=== PATIENT | female | born 1945 | race Caucasian/White ===

== ENCOUNTER → 2016-12-16 | Outpatient (CLI) | payer MEDICARE, OTHER ==
[~2016-12-16] MED LIST: ASPI-558 PO; CALC-446 PO; FISH1CAP47 PO; FLUO40CA PO; IOHEXOL 180 MG/ML 20ml INJECTION ONE; LIDOCAINE 1% (10mg/ml) 5ml VIAL ONE; MULT-338 PO; MethylPREDNISolone ACETATE 40mg/1ml ONE; ROSU10TA13 PO; TRAZ-56 PO; [UNRECOGNIZED DRUG - CODE] PO
--- NOTE | 2016-12-16 14:07 | DI ---
Indication:ITS.REASON: M48.06 SPINAL STENOSIS; M54.16 RADICULOPATHY Procedure:EPIDURAL INJ.SPINE W FLUO CATH LUMBAR EPIDURAL INJECTION: The patient has low back and radicular pain. The patient has had a previous epidural that provided moderate relief. The details of the procedure, including the benefits, risks, and alternatives were explained to the patient. All of their questions were answered. They stated that they understood and wished to proceed. Informed consent was then obtained. A pre-procedural timeout was performed to confirm the correct patient and procedure. Utilizing aseptic technique, local lidocaine anesthetic, and fluoroscopic guidance throughout, a 22-gauge spinal needle was directed into the lumbar epidural space via an interlaminar approach at the L4-5 level. Contrast was injected to assure proper positioning of the needle tip. A fluoroscopic image was then taken and archived. Subsequently, 120 mg Depo-Medrol was injected into the epidural space. The patient tolerated the procedure well. IMPRESSION: Successful lumbar epidural steroid injection. Fluoroscopy dose: 12.65 mGy (Cumulative air kerma) Rhys De La Vega RPA/JOE performed this under my personal supervision. .
== END ==
LOC: IMA 10:58
PROVIDERS: ATTEND Internal Medicine
DX: M48.06 Spinal stenosis, lumbar region (principal); M54.16 Radiculopathy, lumbar region
CPT/HCPCS: 62323; J1030; Q9965

== ENCOUNTER → 2017-01-17 | Outpatient (CLI) | payer MEDICARE, OTHER ==
--- NOTE | 2017-01-17 10:31 | DI ---
Indication:ITS.REASON: M48.06 Spinal stenosis; M54.16 Radiculopathy Procedure:EPIDURAL INJ.SPINE W FLUO CATH LUMBAR EPIDURAL INJECTION: The patient has low back and radicular pain. The patient has had a previous epidural that provided excellent relief. The details of the procedure, including the benefits, risks, and alternatives were explained to the patient. All of their questions were answered. They stated that they understood and wished to proceed. Informed consent was then obtained. A pre-procedural timeout was performed to confirm the correct patient and procedure. Utilizing aseptic technique, local lidocaine anesthetic, and fluoroscopic guidance throughout, a 22-gauge spinal needle was directed into the lumbar epidural space via an interlaminar approach at the L4-5 level. Contrast was injected to assure proper positioning of the needle tip. A fluoroscopic image was then taken and archived. Subsequently, 120 mg Depo-Medrol was injected into the epidural space. The patient tolerated the procedure well. IMPRESSION: Successful lumbar epidural steroid injection. Fluoroscopy dose: 9.87 mGy (Cumulative air kerma) Rhys De La Vega RPA/JOE performed this under my personal supervision. .
== END ==
LOC: IMA 09:22
PROVIDERS: ATTEND Internal Medicine
DX: M48.06 Spinal stenosis, lumbar region (principal); M54.16 Radiculopathy, lumbar region
CPT/HCPCS: 62323; J1030; Q9965

== ENCOUNTER → 2017-01-27 | Outpatient (CLI) | payer MEDICARE, OTHER ==
[~2017-01-27] MED LIST changes: -IOHEXOL 180 MG/ML 20ml INJECTION ONE; -LIDOCAINE 1% (10mg/ml) 5ml VIAL ONE; -MethylPREDNISolone ACETATE 40mg/1ml ONE
== END ==
LOC: WC.BC 14:50
DX: Z12.31 Encounter for screening mammogram for malignant neoplasm of breast (principal); N64.59 Other signs and symptoms in breast; C50.912 Malignant neoplasm of unspecified site of left female breast
CPT/HCPCS: 77063; G0202

== ENCOUNTER 2017-03-03 11:46 | Observation (INO) ==
[2017-03-03 12:33] VITALS: BMI 33.8
[2017-03-03] MEDS ORDERED: NS 1,000 ML IV SCH (13:00)
[2017-03-03] MEDS: NS 1,000 ML IV SCH ×2 (13:23→18:42)
--- NOTE | 2017-03-03 15:12 | Anesthesia Preoperative Report ---
Anesthesia Preoperative Record - Date and Time Date: 03/03/17 Preoperative Diagnosis: acute appendicitis Proposed Procedure: Lap Appy NPO Since Date: 03/02/17 NPO Since Time: 09:00 Allergies/Adverse Reactions: Allergies Allergy/AdvReac Type Severity Reaction Status Date / Time Sulfa (Sulfonamide Allergy Mild Abdominal Verified 03/03/17 12:34 Antibiotics) Discomfort - Vital Signs Vital Signs: Temperature 98.6 F 03/03/17 14:25 Pulse Rate 70 03/03/17 14:25 Respiratory Rate 16 03/03/17 14:25 Blood Pressure 174/81 H 03/03/17 14:25 Pulse Oximetry 95 03/03/17 14:25 Oxygen Delivery Method Room Air Height and Weight: Height 5 ft 6 in Weight 95.1 kg Body Mass Index 33.8 - Medications Inpatient Medications: Current Medications Sodium Chloride (Normal Saline) 1,000 mls @ 100 mls/hr IV .Q10H FANNY Last Admin: 03/03/17 13:23 Dose: 100 mls/hr Home Medications: Home Medications Medication Instructions Recorded Confirmed Type Aspirin [Aspir 81] 81 mg PO DAILY #0 03/05/10 03/03/17 History Fish Oil/[place]-3 Fatty Acids (Fish 2 cap PO DAILY #0 03/05/10 03/03/17 History Oil 1,200 Mg Softgel) Multivitamins (Multi-Day) 1 tab PO DAILY #0 03/05/10 03/03/17 History Rosuvastatin [Crestor] 10 mg PO HS #0 03/05/10 History Trazodone HCl 25 mg PO DAILY #0 03/05/10 History Metformin [Glucophage] 500 mg PO BIDWM 03/03/17 03/03/17 History Venlafaxine [Effexor] 75 mg PO DAILY 03/03/17 03/03/17 History Is Patient on Beta Michelle?: No - Medical History Respiratory: Reports: Sleep Apnea (cpap) Cardiovascular: Reports: Hypertension DENIES: Coronary Artery Disease Gastrointestional: DENIES: Gastroesophageal Reflux Disease Neuro/Musculoskeletal: Denies: Cerebrovascular Accident Renal/Endocrine: Reports: Diabetes Mellitus Type 2 (NIDDM) Other History: DENIES: Anesthesia Reactions - Surgical History HEENT Surgeries: Reports: Eye Surgery (CATARACTS X2) GI Surgery/Treatments: Reports: Colonoscopy Reproductive Surgery/Treatment: Reports: Hysterectomy Anesthesia Reactions: None Hx Family Anesthesia Reaction: No History of Motion Sickness: No - Social History Smoking Status: Never smoker Hx Chewing Tobacco Use: No Second Hand Exposure: No Substance Use Type: does not use Alcohol Intake Frequency: does not drink - Pertinent Findings Laboratory: CBC and BMP 03/03/17 13:43 03/03/17 13:43 BMP 03/03/17 13:43 Sodium 141 Potassium 3.9 Chloride 108 H Carbon Dioxide 25 BUN 10.0 Creatinine 0.7 Glucose 100 Calcium 9.6 Liver Function 03/03/17 Range/Units 13:43 Total Bilirubin 0.90 (0.20-1.30) MG/DL AST 26 (14-36) U/L ALT 29 (9-52) U/L Alkaline Phosphatase 64 (38-126) U/L Albumin 4.3 (3.5-5.0) G/DL EKG Rhythm: Normal Sinus Rhythm - Physical Exam Respiratory Exam: Present: lungs clear Cardiovascular Exam: Present: regular rate and rhythm - Airway Assessment Mallampati Score: II TMD: 3 Fingerbreadths Neck Extension: good Overall Assessment: no airway concerns - ASA ASA Score: 2 - Plan Anesthesia: General Inhalation Gases - Discussion Discussion: Discussed risks/options/alternatives of anesthesia and questions answered. Patient consents. Nursing pain assessment noted. Present for Discussion: friend Attestation Statement: Prior to the delivery of any anesthetic medication, I examined the patient, developed the plan, obtained the patient's consent and discussed the risk and benefits of the procedure with the patient/guardian. - Additional Information Seen by Anesthesia: Yes
[2017-03-03] MEDS ORDERED: LIDOCAINE 2% (100mg/5mL) PF 5ml vl ONE (15:18)
[2017-03-03] MEDS ORDERED: PROPOFOL 20 ML ONE (15:18)
[2017-03-03] MEDS ORDERED: ROCURONIUM 50 MG/5 ML INJECTION IVP ONE (15:18)
[2017-03-03] MEDS ORDERED: FentaNYL 100 MCG/2 ML INJECTION ONE (15:20)
[2017-03-03] MEDS ORDERED: MIDAZOLAM 2mg/2ml INJECTION ONE (15:27)
[2017-03-03] MEDS ORDERED: EPHEDRINE 50mg/ml INJECTION ONE (15:35)
[2017-03-03] MEDS ORDERED: ERTAPENEM 1 G in NS 100 ML IV ONE (15:45)
[2017-03-03] MEDS ORDERED: BUPIVACAINE 0.25% (2.5mg/ml) PF 30ml INJECTION ID ONE (16:05)
[2017-03-03] MEDS ORDERED: ONDANSETRON 4 MG/2 ML INJECTION ONE (16:08)
[2017-03-03] MEDS ORDERED: DEXAMETHASONE 4 MG/ML INJECTION ONE (16:08)
--- NOTE | 2017-03-03 16:08 | Consultation ---
DATE OF CONSULTATION 03/03/2017 HISTORY OF PRESENT ILLNESS This patient is 71 years old. She was seen at the office by YELITZA Donahue, on 03/02/2017. The patient was having right lower quadrant abdominal pain at that time which had started on the previous day. This was a constant aching pain. The patient was worried that this might be her appendix. YELITZA Donahue, did order a CT scan of the abdomen and pelvis for the patient to be performed on the following day. The patient did come in to [facility] and undergo a CT scan of the pelvis on the morning of 03/03/2017. This does show acute appendicitis. The patient has continued to have persistent right lower quadrant abdominal pain which has now been present for two days. She has had no nausea or vomiting associated with this. She has had no diarrhea. PAST MEDICAL HISTORY Previous operations: 1. Left mastectomy in 1989 for treatment of breast cancer. 2. Laparoscopic hysterectomy [place] [address] Vasquez at [facility] at [place], [place]. 3. Colonoscopy in December 2005 with removal of hyperplastic polyp. 4. Colonoscopy in 2009 with normal findings. PHYSICAL EXAMINATION VITAL SIGNS: Temperature is 98.3 degrees oral. Pulse is 72. Respiratory rate is 18. Blood pressure is 152/82. Oxygen saturation is 98% on room air. Height is 1.68 meters. Weight is 95.1 kg. BMI is 33.8 kg/m2. ABDOMEN: The patient has old laparoscopic hysterectomy incision scars. The abdomen is soft. No abdominal masses. The patient does have well-localized right lower quadrant abdominal tenderness. LABORATORY DATA White blood cell count is 7,800 with no bands. Hemoglobin is 13. Hematocrit is 40. INR is 1.14. IMAGING DATA This patient did have a CT scan of the abdomen and pelvis with IV contrast at [facility] on the morning of 03/03/2017. The CT scan shows findings consistent in appearance with acute appendicitis. There is no free air. There is no periappendiceal abscess identified. IMPRESSION 1. Acute appendicitis. PATIENT EDUCATION I did inform the patient of the nature of a laparoscopic appendectomy operation. Expected benefits were reviewed. Alternatives such as antibiotic treatment without operation were reviewed. Potential risks and complications of laparoscopic appendectomy were reviewed including anesthetic risk, bleeding, infection, poor wound healing and injury to intraabdominal and retroperitoneal structures. The patient was informed that there is a chance that any laparoscopic appendectomy might need to be converted over to an open laparotomy with appendectomy operation. Questions were solicited from the patient. All of her questions were answered. She does wish to proceed. RECOMMENDATION Laparoscopic appendectomy. PALLAVI
[2017-03-03] MEDS ORDERED: NEOSTIGMINE 10 MG/10 ML INJECTION ONE (16:39)
[2017-03-03] MEDS ORDERED: GLYCOPYRROLATE 0.4 MG/2 ML INJECTION ONE (16:39)
[2017-03-03] MEDS ORDERED: HYDROMORPHONE 2 MG/ML INJECTION ONE (16:59)
--- NOTE | 2017-03-03 17:01 | General Surgery Procedure Note ---
Date of Procedure: 03/03/17 Surgeon: Keren Postoperative Diagnosis: Acute appendicitis Procedure: Laparoscopic appendectomy Estimated Blood Loss: See Anesthesia Record.
[2017-03-03] MEDS ORDERED: LR 1,000 ML IV SCH (17:22)
--- NOTE | 2017-03-03 18:05 | Internal Med History&Physical ---
Internal Medicine HPI Chief complaint: right lower quadrant abdominal pain History of present illness: Rosa M is a 71-year-old obese white female patient of mine at [facility]. She states that she began to have some lower abdominal pain 2 days ago on Tuesday. This was described as mostly a dull ache with occasional crampiness. She became worse yesterday and she was seen in our office by Kisha TORRE. A CT of the abdomen and pelvis was ordered and this was performed this morning. Radiologist, Dr. Jang, called to let me know that this test revealed acute appendicitis. At that point I made her a direct admission and obtained a surgical consult Dr. eVliz. Review of Systems - Constitutional Constitutional: Present: fatigue, lethargy. Absent: fever(s) - EENMT Eyes: Absent: blurry vision, change in vision, pain, photophobia Ears: Absent: ear discharge, ear pain, tinnitus Balance: Absent: vertigo, falling to one side, ataxia Nose: Absent: change in smell, foreign body, obstruction Mouth/Throat: Absent: sore throat, scratchy throat, changes in swallowing, painful swallowing - Cardiovascular Cardiovascular: Absent: chest pain, palpitations, syncope, dyspnea on exertion Rhythm: Present: regular rhythm Vascular: Absent: Raynaud's, atrophy, intermittent claudication, pallor of an extermity - Respiratory Respiratory: Absent: cough, dyspnea, hemoptysis, dyspnea on exertion, wheezing - Gastrointestinal Gastrointestinal: Present: abdominal pain. Absent: change in stool character, coffee ground emesis, constipation, diarrhea, hematemesis, hematochezia, nausea , vomiting - Musculoskeletal Musculoskeletal: Absent: abnormal gait, arthralgias, joint swelling, limited range of motion, muscle cramps - Integumentary/Breasts Integumentary: Absent: alopecia, change in hair, change in pigmentation, changing lesions, non-healing lesions - Neurological Neurological: Absent: abnormal gait, abnormal movements, focal weakness, lack of coordination, numbness, radicular pain - Psychiatric Psychiatric: Absent: abnormal sleep pattern, anxiety, hallucinations, panic attacks, paranoia - Endocrine Endocrine: Absent: change in libido, heat intolerance, polyphagia - Hematologic/Lymphatic Hematologic/Lymphatic: Absent: easy bleeding, easy bruising, lymphadenopathy - Allergic/Immunologic Allergic/Immunologic: Absent: tongue swelling, throat swelling, seasonal rhinorrhea, urticaria PFSH Patient Stated Medical History Cerebrovascular Accident No Cataracts Yes Macular Degeneration Yes Coronary Artery Disease No Hypertension Yes Sleep Apnea Yes: cpap Diabetes Mellitus Type 2 Yes: NIDDM Gastroesophageal Reflux No Disease Hx Urinary Tract Infection Yes Other Musculoskeletal Yes: SPINAL STENOSIS Anesthesia Reactions No Depression Yes Post Menopausal Yes - Social History Smoking status: Never smoker second hand exposure: No Substance use type: does not use Alcohol intake frequency: does not drink Last drink: unknown Housing: house Household members: none Current occupational status: retired Current occupational exposures/hazards: No Does patient use chewing tobacco?: No Current residence: Apartment/Private Home Medications Home Medications Medication Instructions Recorded Confirmed Type Aspirin [Aspir 81] 81 mg PO DAILY #0 03/05/10 03/03/17 History Fish Oil/[place]-3 Fatty Acids (Fish 2 cap PO DAILY #0 03/05/10 03/03/17 History Oil 1,200 Mg Softgel) Multivitamins (Multi-Day) 1 tab PO DAILY #0 03/05/10 03/03/17 History Rosuvastatin [Crestor] 10 mg PO HS #0 03/05/10 History Trazodone HCl 25 mg PO DAILY #0 03/05/10 History Metformin [Glucophage] 500 mg PO BIDWM 03/03/17 03/03/17 History Venlafaxine [Effexor] 75 mg PO DAILY 03/03/17 03/03/17 History Allergies Allergy/AdvReac Type Severity Reaction Status Date / Time Sulfa (Sulfonamide Allergy Mild Abdominal Verified 03/03/17 12:34 Antibiotics) Discomfort Exam Vital signs: Temperature 96.8 F 03/03/17 17:40 Pulse Rate 96 03/03/17 17:40 Respiratory Rate 14 03/03/17 17:40 Blood Pressure 150/70 H 03/03/17 17:40 Pulse Oximetry 92 03/03/17 17:40 Oxygen Delivery Method Room Air Oxygen Flow Rate 2 - Constitutional mild distress, well developed, obese - Routine HEENT Exam Head: Present: normocephalic, atraumatic Eye: Present: EOMI, PERRL, normal accommodation. Absent: conjunctival icterus, scleral injection, conjunctivae pink, periorbital ecchymosis, periorbital swelling ENT: Present: mucous membranes moist, nares patent - Routine Neck Exam Present: supple, full ROM, JVD, carotid bruit, lymphadenopathy. Absent: thyromegaly, tenderness - Routine Chest/Breast/Axilla Exam Chest wall: Absent: tenderness Breast: Absent: tenderness Axillae: Absent: lymphadenopathy - Routine Respiratory Exam Present: accessory muscle use, decreased breath sounds, rales Internal Medicine Results - Labs CBC & Chem 7: 03/03/17 13:43 03/03/17 13:43 Labs: Short CBC 03/03/17 Range/Units 13:43 WBC 7.8 (4.5-11.0) T/MM3 Hgb 13.0 (12-16) GM/DL Hct 40.0 (36-46) % Plt Count 188 (130-400) T/MM3 BMP 03/03/17 13:43 Sodium 141 Potassium 3.9 Chloride 108 H Carbon Dioxide 25 BUN 10.0 Creatinine 0.7 Glucose 100 Calcium 9.6 Liver Function 03/03/17 Range/Units 13:43 Total Bilirubin 0.90 (0.20-1.30) MG/DL AST 26 (14-36) U/L ALT 29 (9-52) U/L Alkaline Phosphatase 64 (38-126) U/L Albumin 4.3 (3.5-5.0) G/DL - Imaging and Cardiology CT scan - abdomen Status: image reviewed by me Assessment and Plan (1) Acute appendicitis Current visit: Yes Status: Acute (2) Obesity Current visit: Yes Status: Acute (3) Diabetes mellitus type 2 in obese Current visit: Yes Status: Acute (4) Hypertension Current visit: Yes Status: Acute Sepsis Assessment - Evaluation Sepsis screening result: No Definite Risk
[2017-03-03] MEDS ORDERED: ONDANSETRON 4 MG/2 ML INJECTION IVP PRN (18:32)
[2017-03-03] MEDS ORDERED: ACETAMINOPHEN 500 MG TABLET PO PRN (18:32)
[2017-03-03] MEDS ORDERED: IBUPROFEN 200 MG TABLET PO PRN (18:32)
[2017-03-03] MEDS ORDERED: MORPHINE SULFATE 10 MG SYRINGE IV PRN (18:32)
[2017-03-03] MEDS ORDERED: PROMETHAZINE 25 MG INJECTION IVP PRN (18:32)
[2017-03-03] MEDS ORDERED: Oxycodone *IR* 5 MG TABLET PO PRN (18:32)
--- NOTE | 2017-03-03 19:21 | Anesthesia Postoperative Note ---
- Date and Time Date: 03/03/17 Time: 18:05 - Status Patient Participated in Evaluation: Patient Participated in Person Vital Signs: Temperature 97.9 F 03/03/17 18:05 Pulse Rate 87 03/03/17 18:50 Respiratory Rate 18 03/03/17 18:05 Blood Pressure 152/78 H 03/03/17 18:50 Pulse Oximetry 95 03/03/17 18:50 Oxygen Delivery Method Nasal Cannula Oxygen Flow Rate 2.0 Respiratory Function: Airway Patent Cardiovascular Function: Regular Pulse EKG Rhythm: Normal Sinus Rhythm Mental Status: Alert and Oriented (slightly drowsy) Pain Intensity: 0 Hydration: IV Infusing Complications During Recover: None Apparent - Follow-Up Instructions Instructions: Per Surgeon
[2017-03-04] MEDS: NS 1,000 ML IV SCH ×2 (04:51→11:06)
[2017-03-04 08:09] VITALS: TEMP 98.3; O2SAT 95
[2017-03-04] MEDS ORDERED: ERTAPENEM 1 G in NS 100 ML IV SCH (09:00)
[2017-03-04] MEDS ORDERED: ASPIRIN *EC* 81 MG TABLET PO SCH (09:00)
[2017-03-04] MEDS ORDERED: VENLAFAXINE 75 MG TABLET PO SCH (09:00)
[2017-03-04] MEDS ORDERED: MULTI-VITAMIN + MINERAL TABLET PO SCH (09:00)
[2017-03-04] MEDS ORDERED: OMEGA-3 ACID ESTERS 1 GM CAPSULE PO SCH (09:00)
--- NOTE | 2017-03-04 10:48 | Operative Note ---
DATE OF OPERATION 03/03/2017 PREOPERATIVE DIAGNOSIS Acute appendicitis. POSTOPERATIVE DIAGNOSIS Acute appendicitis. OPERATION Laparoscopic appendectomy. SURGEON Dr. Veliz ANESTHESIA General. ASA CLASS 3 FINDINGS The patient did appear to have acute appendicitis. The appendix appeared to be distended and inflamed. There was some inflammatory exudate on the appendix. There did not appear to be any perforation of the appendix. There was no periappendiceal abscess. Loops of small intestine appeared normal. The terminal ileum and ascending colon appeared normal. Liver appeared normal.. DESCRIPTION OF OPERATION The patient was placed in supine position on the operating table. General anesthesia was satisfactorily induced. A Hobson catheter was inserted into the urinary bladder. The abdomen was prepped and draped in routine sterile fashion. The skin and underlying structures at the abdominal wall at an infraumbilical incision site were infiltrated with bupivacaine 0.25% without epinephrine. An infraumbilical incision was made. A Veress needle was inserted into the peritoneal cavity through the incision. Pneumoperitoneum was established with carbon dioxide. The Veress needle was removed. A 5-mm port was placed at the infraumbilical incision. The 5 mm laparoscope was inserted through the 5 mm infraumbilical port. The skin and underlying abdominal wall structures were infiltrated with bupivacaine at the lateral margin of the right rectus abdominis muscle at the right upper quadrant of the abdomen at another incision site. An incision was made at this location and a 5-mm port was placed at the right upper quadrant abdominal incision. The skin and underlying abdominal wall structures were infiltrated with bupivacaine at a suprapubic incision site. A suprapubic incision was made at the midline. A 12-mm port was placed at the suprapubic incision. The peritoneal cavity was examined with the laparoscope with findings as described above. The appendix was grasped and elevated with the endoscopic Autumn forceps inserted at the suprapubic port. The mesoappendix was divided with the Ethicon brand 5 mm laparoscopic ultrasonically activated coagulating ana. This was the Harmonic Vito ultrasonic ana. This was introduced at the right upper quadrant port. The mesoappendix was coagulated and divided with the Ethicon brand 5 mm laparoscopic ultrasonically activated coagulating ana. The appendix was completely freed up in this manner. Three separate 0 PDS Endoloop ligatures were applied to the base the appendix adjacent to the cecum. The appendix was then divided just beyond these ligatures with a curved dissecting scissors. The appendix was placed in a specimen retrieval pouch. The specimen retrieval pouch containing the appendix was brought out through the suprapubic incision. The appendix was submitted as a specimen for study by the pathologist. The 12 mm port was reinserted at the suprapubic incision. The appendectomy site looked good. The appendiceal stump looked good. Irrigation was performed at the right lateral gutter. Irrigation was performed at the appendectomy site. Irrigation was performed at the pelvis. Irrigation was performed until all the irrigation fluid was clear. Irrigation fluid was removed from the peritoneal cavity. Hemostasis remained satisfactory at the appendectomy site. The appendiceal stump continued to have satisfactory appearance. The suprapubic port was removed. The right upper quadrant port was removed. The laparoscope was removed. The infraumbilical port was removed. Carbon dioxide was removed from the peritoneal cavity by desufflation. The fascial layer of the suprapubic incision was closed with a series of simple interrupted stitches using 0 Vicryl suture. Skin margins were then closed at all the incisions with subcuticular stitches using 4-0 Vicryl suture. Benzoin and 1/4-inch wide Steri- Strips were applied to the incisions. Sterile dressings were applied. The patient tolerated the operation well. The patient was transferred from the operating room to the recovery room in satisfactory condition. PALLAVI
[2017-03-04 12:04] VITALS: BP 141/66; PULSE 71; RESP 16
--- NOTE | 2017-03-04 13:44 | Progress Note ---
DATE 03/04/2017 POSTOP DAY #1 HISTORY The patient is doing well overall. She has the usual postoperative tiredness and fatigue. She is up in a chair at this time. She has been tolerating her diet well. She is having no nausea or vomiting. PHYSICAL EXAMINATION VITAL SIGNS: Temperature is 98.3 degrees oral. Pulse is 71. Respiratory rate is 16. Blood pressure is 141/66. Oxygen saturation is 95% on room air. ABDOMEN: All of the abdominal incisions look good. LABORATORY DATA White blood cell count is 7,600 with 1 band. Hemoglobin is 12.4. Hematocrit is 38.6. IMPRESSION Doing well following laparoscopic appendectomy on 03/03/2017. PLAN Continue to advance diet and activity as tolerated. MTDD
--- NOTE | 2017-03-04 14:59 | Discharge Instructions ---
Discharge Plan - Med Rec/Dispo Referrals/Follow Up: Neo Avina DO [Family Provider] - (Follow up with Dr Avina in 1-2 weeks) Leighton Veliz MD [Physician] - (Please schedule follow up apt for next 03/10/17) Prescriptions: New Acetaminophen [Tylenol] 500 - 1,000 mg PO Q6H PRN tablet PRN Reason: Discomfort Ibuprofen [Motrin] 400 - 800 mg PO Q6H PRN tablet PRN Reason: Pain Senna + Docusate [Senna Plus Tablet] 1 each PO BID #30 tablet PEG 3350 17gm PACKET [Miralax] 17 gm PO DAILY #30 packet Continue Venlafaxine [Effexor] 37.5 mg PO BID Metformin [Glucophage] 500 mg PO BIDWM Trimethoprim 100 tab PO QMWF Rosuvastatin [Crestor] 10 mg PO HS #0 Aspirin [Aspir 81] 81 mg PO DAILY #0 Multivitamins (Multi-Day) 1 tab PO DAILY #0 Fish Oil/[place]-3 Fatty Acids (Fish Oil 1,200 Mg Softgel) 2 cap PO DAILY #0 Trazodone HCl 50 mg PO DAILY #0 Losartan 50 tab PO DAILY Discharge Instructions/Outpatient Orders: Final Provider Discharge Instructions Location: Determined By Patient - Disposition 01 Discharged Home, Self-Care
--- NOTE | 2017-03-04 15:41 | Discharge Summary ---
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 Veliz - Laboratory Labs: 03/04/17 04:09 03/03/17 13:43 - Microbiology None - Radiology Radiology: None - Pathology None History of Present Illness HPI: Rosa M is a 71-year-old obese white female patient of mine at [facility] [employer]. She states that she began to have some lower abdominal pain 2 days ago on Tuesday. This was described as mostly a dull ache with occasional crampiness. She became worse yesterday and she was seen in our office by Kisha TORRE. A CT of the abdomen and pelvis was ordered and this was performed this morning. Radiologist, Dr. Jang, called to let me know that this test revealed acute appendicitis. At that point I made her a direct admission and obtained a surgical consult Dr. Veliz. Objective Vital signs: Temperature 98.3 F 03/04/17 12:00 Pulse Rate 71 03/04/17 12:00 Respiratory Rate 16 03/04/17 12:00 Blood Pressure 141/66 H 03/04/17 12:00 Pulse Oximetry 95 03/04/17 12:00 Oxygen Delivery Method Room Air Oxygen Flow Rate 2 Weight: 98.3 kg - Constitutional Present: no acute distress - Routine HEENT Exam Head: Present: normocephalic, atraumatic Eye: Present: EOMI, PERRL ENT: Present: mucous membranes moist, mucous membranes dry - Routine Respiratory Exam Present: CTA bilaterally - Routine Cardiovascular Exam Present: RRR, S1, S2 - Routine Abdominal Exam Present: soft, normoactive bowel sounds, non distended, non tender - Routine Extremities Exam Present: full ROM - Routine Back/Spine/Pelvis Exam Back/Spine: Present: full ROM - Routine Skin Exam Present: intact, dry, warm - Routine Neurological Exam Present: alert, oriented X3 - Routine Psychiatric Exam Present: normal affect, normal thought process Hospital Course This is a general summary of the patient's hospital course. For more details refer to the complete medical record. Hospital course: Mrs Echeverria was admitted under the care of her primary care provider, Dr. Avina with consultation placed to Dr. Veliz for acute appendicitis. She underwent a laparoscopic appendectomy on 03/03/17 without complications. Today she is seen and evaluated. Besides feeling generally fatigued. She is doing well. She has been up and ambulate in the jang. She is tolerating oral intake and she is voiding without difficulty. We did discuss plan for discharge. Did also discuss importance of both follow-up with primary care, Dr. Avina, as well as with Dr. Veliz next week for further postoperative evaluation and treatment. Terminations were made for postoperative bowel motivation including MiraLAX and senna plus scheduled. Vision feels that she can manage her pain with just Tylenol. Did encourage her to follow-up or contact primary care or general surgeon if she should have concerning symptoms such as fevers, chills, severe abdominal pain, shortness of breath or other concerning symptoms. She was discharged in stable condition with her . All her team. Home medications were continued. Time spent with patient: 25 - 35 minutes Discharge Plan - Med Rec/Dispo Referrals/Follow Up: Leighton Veliz MD [Physician] - 03/10/17 11:30 am () Neo Avina DO [Family Provider] - (Follow up with Dr Avina in 1-2 weeks) Sandra Instructions: Laparoscopic Appendectomy (DC) Prescriptions: New Acetaminophen [Tylenol] 500 - 1,000 mg PO Q6H PRN tablet PRN Reason: Discomfort Ibuprofen [Motrin] 400 - 800 mg PO Q6H PRN tablet PRN Reason: Pain Senna + Docusate [Senna Plus Tablet] 1 each PO BID #30 tablet PEG 3350 17gm PACKET [Miralax] 17 gm PO DAILY #30 packet Continue Venlafaxine [Effexor] 37.5 mg PO BID Metformin [Glucophage] 500 mg PO BIDWM Trimethoprim 100 tab PO QMWF Rosuvastatin [Crestor] 10 mg PO HS #0 Aspirin [Aspir 81] 81 mg PO DAILY #0 Multivitamins (Multi-Day) 1 tab PO DAILY #0 Fish Oil/[place]-3 Fatty Acids (Fish Oil 1,200 Mg Softgel) 2 cap PO DAILY #0 Trazodone HCl 50 mg PO DAILY #0 Losartan 50 tab PO DAILY Discharge Instructions/Outpatient Orders: Final Provider Discharge Instructions Location: Determined By Patient - Disposition 01 Discharged Home, Self-Care <Tyrone Reddy - Last Filed: 03/04/17 17:06> Discharge Information Date of admission: 03/03/17 11:49 Attending Physician: Neo Avina DO Primary care physician: Neo Avina DO Consults: 03/03/17 12:00 Physician Consult [CONS] Routine Consulting Provider: Leighton Veliz Reason For Exam: ACUTE APPENDICITIS Ordering Provider has Notified Collar Starcher: Yes 03/03/17 14:24 Consult to Anesthesiology [CONS] Routine Consulting Provider: YELITZA Booth Reason For Exam: Normal Procedure - Discharge Diagnosis (1) Acute appendicitis Qualifiers: Acute appendicitis type: unspecified acute appendicitis type Qualified Code (s): K35.80 - Unspecified acute appendicitis Status: Acute (2) 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 For more details refer to the complete medical record. 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 Chart reviewed. Patient discharged prior to my ability to independently interview and examine her. Agree with above care plan and action.
== END 2017-03-04 15:27 | disposition home or self-care (01) ==
LOC: SRG
PROVIDERS: ADMIT Internal Medicine; ATTEND Internal Medicine